=== PATIENT | male | born 1935 | race Caucasian/White ===

== ENCOUNTER → 2016-09-23 12:10 | Outpatient (CLI) | payer MEDICARE, OTHER ==
[2014-07-06 13:42] VITALS: BMI 26.0
[~2016-09-23 12:10] MED LIST: ACETAMINOPHEN325 MG PO; HEMOCYTE PLUS C1 CAP PO; LOPRESSOR25 MG PO; ULTRAM50 MG PO
== END | disposition home or self-care (01) ==
LOC: D.RAD 12:10
DX: R13.10 Dysphagia, unspecified (principal)

== ENCOUNTER 2017-03-23 16:59 | Inpatient (IN) | payer MEDICARE, OTHER ==
[~2017-03-23] VITALS: Ht 180.3 cm; Wt 81.6 kg
--- NOTE | ~2017-03-23 | HP ---
PATIENT: BEV BARNES MEDICAL RECORD: [id number] ACCOUNT: [id number] LOCATION:D.MS [id number] : 36 ADMISSION DATE: 03/23/17 HISTORY AND PHYSICAL EXAMINATION DATE OF ADMISSION: 03/23/2017 CHIEF COMPLAINT: Shortness of breath, cough, back, and chest pain. HISTORY OF PRESENT ILLNESS: This is an 81-year-old healthy male who has been having a cough and congestion for over a week. He states he came to the office with similar symptoms and was checked for flu and that was negative. His symptoms have been ongoing for 4-5 days at that time and was certainly not in the window of opportunity to treat for flu. Over the last week, his cough has gotten worse. His shortness of breath has gotten worse. He has had some sharp chest pains in his back, sometimes with cough and sometimes with certain movements. He was brought to the Emergency Department today with acute worsening of shortness of breath. His blood gas showed a pH of 7.46, pCO2 of 32.6 and pO2 of 63. His white count was elevated at 15,000. Lactic acid is elevated at 2.5, troponin was normal. Chest x-ray showed no acute process, but did show emphysema. He does not have a diagnosis of that. He stopped smoking over 40 years ago. With this hypoxia, elevated white count, and elevated lactic acid level, suspicious for some pneumonia, he is admitted for further care. PAST MEDICAL AND SURGICAL HISTORY: He has had diverticulosis, diverticulitis, BPH, osteoarthritis, degenerative disc disease in his back, phlebitis, and coronary artery disease. PAST SURGICAL HISTORY: Coronary artery bypass surgery in June 2014. He has had surgery for deviated septum and wisdom teeth removed. ALLERGIES: No known drug allergies. CURRENT MEDICATIONS: Really none. He does not take gabapentin regularly nor does he take tramadol regularly. HABITS: Former smoker, quit 40 years ago. No alcohol or drugs. SOCIAL HISTORY: and retired. FAMILY HISTORY: Father at 91. He had diabetes and heart disease. Mother at 86 of throat cancer. REVIEW OF SYSTEMS: GENERAL: No major weight changes. HEENT: No particular sinus or allergy problems. RESPIRATORY: No diagnosis of emphysema or asthma, no history of pneumonia. CARDIAC: He has coronary artery disease and had bypass surgery over 2-1/2 years ago and has done well from that. GASTROINTESTINAL: No diarrhea or constipation and no heartburn. GENITOURINARY: He has BPH. MUSCULOSKELETAL: He has had some low back discomfort and degenerative disc disease. NEUROLOGIC: No migraines. No seizures. PSYCHIATRIC: Denies depression or melancholia. HISTORY AND PHYSICAL [id number] MOLLYBEVVIN PHYSICAL EXAMINATION: VITAL SIGNS: Today, he is afebrile. His heart rate was 86, blood pressure 126/84. When I last saw him, he was on BiPAP in the Emergency Department. His O2 sat was 95% then, but it would go down into the mid 80s, when he stopped BiPAP. HEENT: Grossly within normal limits. NECK: Supple. No JVD or bruit. HEART: Regular rate and rhythm without murmur. LUNGS: A few distant wheezes right now, no rales. ABDOMEN: Soft. EXTREMITIES: No edema. NEUROLOGIC: Intact. LABORATORY DATA: Blood gas pH 7.46, pCO2 32.6, pO2 of 63, O2 sat 93.4% and that was on 5 liters via nasal cannula. CBC with a white count 15,700, hemoglobin 17.3, hematocrit 49.3, platelets number 298,000, 85% neutrophils. Sodium 134, potassium 4.0, chloride 99, CO2 28.1, BUN 25, creatinine 1.0. Glucose 126. Lactic acid 2.5, calcium 9.2, total bilirubin 0.76. AST and ALT were normal. Alkaline phosphatase a little high at 125. Troponin less than 0.017. Chest x-ray read by the radiologist showed no acute cardiopulmonary disease, stable scarring in the left lung base compared to previous chest x-ray from June 2014 and it is mentioned that there are emphysematous changes. ASSESSMENT: 1. Hypoxia. 2. Cough. 3. Probable bronchitis. PLAN: He will remain on BiPAP. We will consult pulmonology. He has been started on Levaquin in the Emergency Room, we will continue that. Other tests or procedures as warranted. TRANSINT:[id number] Voice Confirmation ID: [id number] DOCUMENT ID: [id number] DEMETRICE ALEJANDRE MD at 0844 CC: [id number] DICTATION DATE: 03/24/1736 ADMISSIONS OFFICER: 03/24/17 0123 ADM IN [place] [id number] [facility] [place] [address]
--- NOTE | ~2017-03-23 | CN ---
PATIENT NAME:BEV BARNES MEDICAL RECORD: [id number] : 37 LOCATION:D.MS [id number] ADMIT DATE: 03/23/17 ACCOUNT: [id number] CONSULTING PHYSICIAN: TAYLOR GALVEZ MD REFERRING PHYSICIAN: CLARISA CROUCH MD DATE OF CONSULTATION: 03/24/2017 CONSULT REQUESTING PHYSICIAN: Clarisa Crouch MD REASON FOR CONSULTATION: Pneumonia, left lower lobe, COPD exacerbation. HISTORY OF PRESENT ILLNESS: Mr. Barnes is an 81-year-old gentleman who was sick for the last week to 10 days. He was checked for the influenzae and that was negative. The patient came into the ER with coughing, wheezing, and shortness of breath. He also having chest pain whenever he is coughing or breathing out. The pain was pleuritic in nature. The patient had a CTA of the chest, which showed pneumonia of left lower lobe, but there was no PE. REVIEW OF SYSTEMS: As in history of present illness. PAST MEDICAL HISTORY: 1. Diverticulosis and diverticulitis. 2. BPH. 3. Osteoarthritis. 4. Degenerative disc disease. 5. Ex-smoker, but there is no documented chronic obstructive pulmonary disease. 6. Gastroesophageal reflux disease. This is pretty well controlled. 7. Coronary artery disease. PAST SURGICAL HISTORY: 1. He has a coronary artery bypass graft in June 2014. 2. Surgery for deviated septum. 3. [place] tooth removed. ALLERGIES: There are no known drug allergies. CURRENT MEDICATIONS: On Microventures was reviewed. PERSONAL AND SOCIAL HISTORY: The patient is an ex-smoker. He is a nondrinker. FAMILY HISTORY: Noncontributory. PHYSICAL EXAMINATION: GENERAL: Now, the patient is lying comfortably, but he is not in acute distress. VITAL SIGNS: The blood pressure is 120/61, pulse is 83, respirations is 18, temperature 97.9, SPO2 is 93% on 5 liters nasal cannula. HEENT: Conjunctivae is pink, sclerae nonicteric. NECK: Supple. No JVD. CHEST: There is a crackle at the left base. There is wheeze on forceful expiration. HEART: Rhythm regular, normal sound, no murmur. ABDOMEN: Soft. Bowel sounds present. No hepatosplenomegaly. RECTAL: Deferred. EXTREMITIES: No cyanosis, no clubbing, no pedal edema. CONSULT REPORT [id number] BEV BARNES CENTRAL NERVOUS SYSTEM: The patient is awake and alert. There is no obvious cranial nerve abnormality. The gait was not tested. LABORATORY DATA: CBC: The WBC is 19.8, hemoglobin 13.9, hematocrit 39.7, and the platelet count 213. Chemistry: Sodium is 139, potassium 4.9, BUN is 20, creatinine 0.9. ABG on admission, the pH was 7.46, pCO2 is 30.6, the pO2 was 63, bicarbonate is 23.4. IMPRESSION: 1. Acute hypoxic respiratory failure secondary to; A. Pneumonia of left lower lobe. B. Acute exacerbation of chronic obstructive pulmonary disease. 2. Acute cough. 3. Gastroesophageal reflux disease. 4. Leukocytosis secondary to pneumonia. 5. Ex-smoker. RECOMMENDATION: 1. Continue Levaquin. I will add Rocephin IV to cover for DNR and community-acquired pneumonia. 2. Start methylprednisolone IV. Start albuterol and ipratropium nebulizer. Start Brovana and budesonide nebulizer. 3. Mucinex DM. 4. We will follow up labs and chest radiograph. Dr. Crouch, thank you for involving me in the care of Mr. Barnes. TRANSINT:[id number] Voice Confirmation ID: [id number] DOCUMENT ID: [id number] TAYLOR GALVEZ MD at 1406 CC: [id number] DICTATION DATE: 03/24/17 1620 ANVIL WORKER: 03/24/17 1709 ADM IN [place] [id number] [place] [address]
[2017-03-23 17:49] LABS: BASOPHILS 0.1 % (0-2); EOSINOPHILS 1.3 % (0-7); HEMATOCRIT 49.3 % (42.0-54.0); HEMOGLOBIN 17.3 g/dL (13.5-17.5); IMMATURE GRANULOCYTES 0.3 % (0-5); LYMPHOCYTES 6.7 % (15-50); MCH 31.9 pg (26.0-34.0); MCHC 35.1 g/dL (31.0-37.0); MCV 90.8 fL (80.0-100.0); MEAN PLATELET VOLUME 9.1 fL (7.4-10.4); MONOCYTES 6.7 % (2-11); NEUTROPHILS 84.9 % (40-80); RBC 5.43 10x6/uL (4.20-6.10); RDW 12.2 % (11.5-14.5); WBC 15.7 10x3/uL (4.8-10.8)
[2017-03-23 17:56] LABS: PLATELET COUNT 298 10x3/uL (130-400)
[2017-03-23 18:06] LABS: ALBUMIN 4.3 g/dL (3.4-5.0); ALKALINE PHOSPHATASE 125 U/L (46-116); ALT (SGPT) 54 U/L (10-68); BILIRUBIN - TOTAL 0.76 mg/dL (0.2-1.3); CALC OSMOLALITY 273 mosm/kg (275-300); CALCIUM 9.2 mg/dL (8.5-10.1); CARBON DIOXIDE 28.1 mmol/L (21.0-32.0); CHLORIDE - SERUM 99 mmol/L (98-107); GLUCOSE 126 mg/dL (74-106); PROTEIN - SERUM 7.9 g/dL (6.4-8.2); SODIUM 134 mmol/L (136-145); UREA NITROGEN 25 mg/dL (7-18); eGFR NON AFRICAN AMERICAN 76 mL/min (90-120)
[2017-03-23 18:07] LABS: TROPONIN-I < 0.017 ng/mL (0.000-0.060)
[2017-03-24 01:16] VITALS: BP 114/63; BMI 25.1
[2017-03-24 04:00] VITALS: BP 114/63
[2017-03-24 06:09] LABS: CALCIUM 8.2 mg/dL (8.5-10.1); CARBON DIOXIDE 26.5 mmol/L (21.0-32.0); CHLORIDE - SERUM 104 mmol/L (98-107); CREATININE - SERUM 0.9 mg/dL (0.6-1.3); SODIUM 139 mmol/L (136-145); UREA NITROGEN 20 mg/dL (7-18); eGFR NON AFRICAN AMERICAN 86 mL/min (90-120)
[2017-03-24 06:17] LABS: CALC OSMOLALITY 285 mosm/kg (275-300); GLUCOSE 180 mg/dL (74-106); POTASSIUM - SERUM 4.9 mmol/L (3.5-5.1)
[2017-03-24 06:27] LABS: BASOPHILS 0.1 % (0-2); EOSINOPHILS 0 % (0-7); HEMATOCRIT 39.7 % (42.0-54.0); HEMOGLOBIN 13.9 g/dL (13.5-17.5); IMMATURE GRANULOCYTES 0.3 % (0-5); MCH 31.6 pg (26.0-34.0); MCV 90.2 fL (80.0-100.0); MONOCYTES 6.4 % (2-11); NEUTROPHILS 91.2 % (40-80); RDW 12.3 % (11.5-14.5)
[2017-03-24 06:28] LABS: PLATELET COUNT 213 10x3/uL (130-400); WBC 19.8 10x3/uL (4.8-10.8)
[2017-03-24 09:16] VITALS: BP 113/65
[2017-03-24 11:47] VITALS: BP 120/61
[2017-03-24 13:09] VITALS: Ht 180.3 cm; Wt 81.6 kg
[2017-03-24 16:15] VITALS: BP 117/58
[2017-03-25 04:00] VITALS: BP 107/64
[2017-03-25 06:25] LABS: BASOPHILS 0 % (0-2); EOSINOPHILS 0 % (0-7); HEMATOCRIT 38.5 % (42.0-54.0); HEMOGLOBIN 13.5 g/dL (13.5-17.5); IMMATURE GRANULOCYTES 0.3 % (0-5); LYMPHOCYTES 2.3 % (15-50); MCH 31.4 pg (26.0-34.0); MCHC 35.1 g/dL (31.0-37.0); MCV 89.5 fL (80.0-100.0); MEAN PLATELET VOLUME 9.2 fL (7.4-10.4); MONOCYTES 2.3 % (2-11); NEUTROPHILS 95.1 % (40-80); PLATELET COUNT 233 10x3/uL (130-400); RDW 12.5 % (11.5-14.5); WBC 17.3 10x3/uL (4.8-10.8)
[2017-03-25 06:58] LABS: CALC OSMOLALITY 285 mosm/kg (275-300); CALCIUM 8.9 mg/dL (8.5-10.1); CARBON DIOXIDE 26.5 mmol/L (21.0-32.0); CHLORIDE - SERUM 104 mmol/L (98-107); GLUCOSE 219 mg/dL (74-106); SODIUM 138 mmol/L (136-145); UREA NITROGEN 20 mg/dL (7-18); eGFR NON AFRICAN AMERICAN 76 mL/min (90-120)
[2017-03-25 07:58] VITALS: BP 109/58
[2017-03-25 12:02] VITALS: BP 134/64
[2017-03-25 16:14] VITALS: BP 110/64
[2017-03-26] VITALS: BP 142/58
[2017-03-26 04:00] VITALS: BP 124/65
[2017-03-26 07:07] LABS: BASOPHILS 0 % (0-2); EOSINOPHILS 0 % (0-7); HEMATOCRIT 35.8 % (42.0-54.0); HEMOGLOBIN 12.4 g/dL (13.5-17.5); IMMATURE GRANULOCYTES 0.4 % (0-5); LYMPHOCYTES 2.4 % (15-50); MCH 31.2 pg (26.0-34.0); MCHC 34.6 g/dL (31.0-37.0); MCV 89.9 fL (80.0-100.0); MONOCYTES 5.6 % (2-11); NEUTROPHILS 91.6 % (40-80); PLATELET COUNT 224 10x3/uL (130-400); RBC 3.98 10x6/uL (4.20-6.10); RDW 12.5 % (11.5-14.5); WBC 16.4 10x3/uL (4.8-10.8)
[2017-03-26 07:29] LABS: CALC OSMOLALITY 284 mosm/kg (275-300); CALCIUM 8.9 mg/dL (8.5-10.1); CARBON DIOXIDE 26.7 mmol/L (21.0-32.0); CHLORIDE - SERUM 104 mmol/L (98-107); CREATININE - SERUM 0.9 mg/dL (0.6-1.3); GLUCOSE 210 mg/dL (74-106); POTASSIUM - SERUM 4.4 mmol/L (3.5-5.1); SODIUM 138 mmol/L (136-145); UREA NITROGEN 21 mg/dL (7-18); eGFR NON AFRICAN AMERICAN 86 mL/min (90-120)
[2017-03-26 08:21] VITALS: BP 110/65
[2017-03-26 11:50] VITALS: BP 124/50
[2017-03-26 16:09] VITALS: BP 119/57
[2017-03-26 21:23] VITALS: BP 138/66
[2017-03-27 01:06] VITALS: BP 128/71
[2017-03-27 04:46] VITALS: BP 126/60
[2017-03-27 08:45] VITALS: BP 126/57
[2017-03-27 12:45] VITALS: BP 132/62
[2017-03-27 17:29] VITALS: BP 138/78
[2017-03-28] VITALS: BP 129/70
[2017-03-28 04:00] VITALS: BP 144/71
[2017-03-28 07:33] LABS: BASOPHILS 0 % (0-2); EOSINOPHILS 0 % (0-7); HEMATOCRIT 39.7 % (42.0-54.0); HEMOGLOBIN 13.8 g/dL (13.5-17.5); IMMATURE GRANULOCYTES 0.4 % (0-5); LYMPHOCYTES 3.4 % (15-50); MCH 31.7 pg (26.0-34.0); MCHC 34.8 g/dL (31.0-37.0); MCV 91.1 fL (80.0-100.0); MEAN PLATELET VOLUME 9.1 fL (7.4-10.4); MONOCYTES 8.6 % (2-11); NEUTROPHILS 87.6 % (40-80); PLATELET COUNT 241 10x3/uL (130-400); RBC 4.36 10x6/uL (4.20-6.10); RDW 12.5 % (11.5-14.5)
[2017-03-28 07:47] LABS: CALC OSMOLALITY 286 mosm/kg (275-300); CALCIUM 8.8 mg/dL (8.5-10.1); CARBON DIOXIDE 27.3 mmol/L (21.0-32.0); CHLORIDE - SERUM 103 mmol/L (98-107); CREATININE - SERUM 0.9 mg/dL (0.6-1.3); GLUCOSE 190 mg/dL (74-106); POTASSIUM - SERUM 4.2 mmol/L (3.5-5.1); SODIUM 140 mmol/L (136-145); UREA NITROGEN 21 mg/dL (7-18); eGFR NON AFRICAN AMERICAN 86 mL/min (90-120)
[2017-03-28 10:47] VITALS: BP 134/72
[2017-03-28] MEDS ORDERED: OMNICEF300 MG PO (13:23)
[2017-03-28] MEDS ORDERED: IPRAT-ALBUT 0.5-3 ML UPD (13:24)
[2017-03-28] MEDS ORDERED: LEVAQUIN750 MG PO (13:24)
[2017-03-28] MEDS ORDERED: BROVANA15 MCG/2 M INH (13:24)
[2017-03-28] MEDS ORDERED: BENZONATATE200 MG PO (13:24)
[2017-03-28] MEDS ORDERED: PULMICORT0.5 MG/21 UPD (13:25)
[2017-03-28] MEDS ORDERED: MUCINEX DM ER1 EAC1 PO (13:25)
[2017-03-28] MEDS ORDERED: PROTONIX40 MG PO (13:26)
[2017-03-28] MEDS ORDERED: FLORAJEN3 CAPS460 MG PO (13:26)
[2017-03-28] MEDS ORDERED: PREDNISONE20 MG PO (13:27)
== END 2017-03-28 16:43 | disposition home or self-care (01) | DRG 177 ==
LOC: D.ER 16:59 → D.MS 21:42
PROVIDERS: Emergency Medicine; Family Medicine; Internal Medicine Pulmonary Disease
DX: J15.6 Pneumonia due to other Gram-negative bacteria (principal); J96.01 Acute respiratory failure with hypoxia; J44.1 Chronic obstructive pulmonary disease with (acute) exacerbation; J90 Pleural effusion, not elsewhere classified; J13 Pneumonia due to Streptococcus pneumoniae; D64.9 Anemia, unspecified; Z87.891 Personal history of nicotine dependence

== ENCOUNTER 2017-04-07 12:54 | Inpatient (IN) | payer MEDICARE, OTHER ==
[~2017-04-07] VITALS: Ht 180.3 cm; Wt 85.0 kg
--- NOTE | ~2017-04-07 | HEMODYNAMI ---
PATIENT:BEV BARNES MEDICAL RECORD: [id number] : 37 LOCATION:[facility] D.2107 ADMISSION DATE: 04/07/17 Generatedon:04/08/201711:14 Patient name: BEV BARNES Patient #: [id number] SSN: : 1935 Date of study: 04/08/2017 Page: Of Hemodynamic Procedure Report Patient Data Patient Demographics Procedure consent was obtained First Name: BEV Gender: Male Last Name: MOLLY : 1935 Middle Initial: VIVIAN Age: 81 year(s) Patient #: [id number] Race: Additional ID: [id number] Contact details Address: [address] [place] [address] State: [place] City: [facility] Zip code: [address] Past Medical History Allergies Allergen Reaction Date Comments Reported Other allergy 06/04/2014 HYDROCODONE Other allergy 04/08/2017 oxycodone, hydrocodone Admission Admission Data Admission Date: 04/07/2017 Admission Time: 12:54 Room #: D.2107 Weight (lbs.): 172.95 Weight (kg.): 78.45 Procedure Procedure Types Cath Procedure Diagnostic Procedure LHC LHC w/Coronaries w/Grafts PCI Procedure Coronary Stent Coronary Stent Initial Miscellaneous Procedures Moderate Sedation up to 30 minutes Procedure Description Procedure Date Procedure Date: 04/08/2017 Procedure Start Time: 10:55 Procedure End Time: 11:13 Procedure Staff Name Function Seven Doran MD Performing Physician Vanesa Javed RT Monitor Ava Dumont RT Scrub Hardeep Montanez RN Nurse Amilcar Arthur RN Insurance Sales Producer Indication Angina Procedure Data Cath Procedure Fluoroscopy Diagnostic fluoroscopy Total fluoroscopy Time: 3.8 time: 3.8 min min Diagnostic fluoroscopy Total fluoroscopy dose: 585 dose: 585 mGy mGy Contrast Material Contrast Material Type Amount (ml) Isovue 300 123 Entry Location Entry Primary Successful Side Size Upsize Upsize Entry Closure Succes sful Closure Location (Fr) 1 (Fr) 2 (Fr) Remarks Device Remarks Femoral Right 5 Fr 6 Fr Exoseal artery Short Estimated blood loss: 10 ml Diagnostic catheters Device Type Used For End Catheter Placement MULTIPACK Pigtail 5 Fr LV Angiography catheter MULTIPACK JL 4.0 5Fr Left Coronary catheter Angiography MULTIPACK 3DRC 5Fr Internal mammary catheter arteriography MULTIPACK 3DRC 5Fr Right Coronary catheter Angiography DIAGNOSTIC AR 1 MOD 5Fr Procedure catheter ([id number]) Procedure Complications No complications Procedure Medications Medication Administration Route Dosage 0.9% NaCl I.V. 100 ml/hr Oxygen NC 2 l/min Heparin Flush Bag added to field 2 bags (1000units/500ml NS) Lidocaine 2% added to field 20 Versed I.V. 0.5 mg Fentanyl I.V. 25 mcg Heparin Bolus I.V. 4000 units Integrilin (Bolus I.V. 6.8 ml 2mg/ml) Integrilin (Bolus wasted 3.2 ml 2mg/ml) Hemodynamics Rest Heart Rate: 89 (bpm) Snapshots Pre Cath Intra NCS Post Cath Vital Signs Time Heart Resp SPO2 etCO2 NIBP Rhythm Pain Sedation Rate (ipm) (%) (mmHg) (mmHg) Status Level (bpm) 10:47:10 84 39 94 14.8 119/67(97) NSR 0 (11) 10(A) , No pain 10:51:20 82 32 93 17.8 113/62(83) NSR 0 (11) 10(A) , No pain 10:55:27 85 13 92 20.8 105/63(77) NSR 0 (11) 10(A) , No pain 10:59:29 99 16 94 24.5 109/74(95) NSR 0 (11) 10(A) , No pain 11:04:30 102 20 92 13.3 101/62(82) NSR 0 (11) 9(A) , No pain 11:08:36 94 17 92 18.5 99/60(81) NSR 0 (11) 9(A) , No pain 11:12:38 93 18 93 23 114/64(83) NSR 0 (11) 9(A) , No pain Medications Time Medication Route Dose Verified Delivered Reason Notes Effectiveness by by 10:50:40 0.9% NaCl I.V. 100 Hardeep Hardeep Per physician ml/hr Lisseth Montanez RN RN 10:50:54 Oxygen NC 2 Hardeep Hardeep Per physician l/min Lisseth Montanez RN RN 10:51:08 Heparin Flush added 2 Hardeep Hardeep used for Bag to bags Lisseth Montanez procedure (1000units/500ml RN RN NS) 10:51:22 Lidocaine 2% added 20ml Hardeep Hardeep for local to vial Lisseth Montanez anesthetic RN RN 10:51:31 Versed I.V. 0.5 Hardeep Hardeep for sedation mg Lisseth Montanez RN RN 10:51:40 Fentanyl I.V. 25 Hardeep Hardeep for sedation mcg Lisseth Montanez RN RN 11:04:25 Heparin Bolus I.V. 4000 Hardeep Hardeep for units Lisseth Montanez anticoagulation RN RN 11:04:53 Integrilin I.V. 6.8 Hardeep Hardeep for (Bolus 2mg/ml) ml Lisseth Montanez antiplatelet RN RN therapy 11:09:50 Integrilin wasted 3.2ml Hardeep Hardeep to sharp's (Bolus 2mg/ml) Lisseth Montanez RN application security consultant Log Time Note 10:28:20 Informed consent obtained and on chart 10:28:23 Diagnostic Cath Status : Elective 10:29:14 Indication : Angina 10:30:22 Amilcar Arthur RN sent for patient. Start room use. 10:30:23 Time tracking: Regular hours 10:30:27 Plan of Care:Hemodynamics will remain stable., Cardiac rhythm will remain stable., Comfort level will be maintained., Respiratory function will remain adequate., Patient/ family verbilizes understanding of procedure., Procedure tolerated without complication., Recovers from procedure without complications.. 10:39:33 Patient received from PCU to CCL 2 Alert and oriented. Tansferred to table in Supine position. 10:39:33 Warm blankets applied, and radha hugger turned on for patient comfort. 10:39:34 Correct patient and procedure confirmed by team. 10:39:35 ECG and BP/O2 sat monitors applied to patient. 10:39:36 Full Disclosure recording started 10:46:07 Vital chart was started 10:46:08 Baseline sample Acquired. 10:46:10 Rhythm: sinus rhythm 10:46:29 H&P Date Dictated: 04/07/2017 Within 30 days and on chart., H&P Addendum completed by physician on day of procedure. (MUST COMPLETE FOR ALL OUTPATIENTS). 10:46:30 Pre-procedure instructions explained to patient. 10:46:31 Pre-op teaching completed and patient verbalized understanding. 10:46:32 Family in waiting room. 10:46:33 Patient NPO since Midnight. 10:46:55 Patient allergic to Other allergyoxycodone, hydrocodone 10:46:58 Is the patient allergic to Iodine/contrast media? No. 10:47:01 Is patient on blood thinner?No 10:47:04 Patient diabetic? No. 10:47:10 Previous problem with sedation/anesthesia? No ? 10:47:11 Snore? Yes 10:47:12 Sleep apnea? No 10:47:17 Deviated septum? No 10:47:18 Opens mouth fully? Yes 10:47:19 Sticks out tongue? Yes 10:47:22 Airway obstruction? Yes COPD 10:47:24 Dentures? No ? 10:47:27 Pre procedure: right dorsailis pedis pulse 2+ Normal; easily identifiable; not easily obliterated 10:47:29 Patient pain scale 0/10 ?. 10:47:41 IV patent on arrival in left forearm with 0.9% NaCl at O. 10:47:44 Lab results completed and on chart. 10:47:47 Right groin area was prepped with chlora-prep and draped in sterile fashion 10:47:48 Alarms reviewed by R. N. 10:47:48 Sharps counted by scrub and verified by R.N. 10:49:59 Use device set Femoral Dx 10:50:01 ACIST Syringe (38376) opened to sterile field. 10:50:01 Bag Decanter (2002) opened to sterile field. 10:50:02 Medline Cath Pack ([id number]) opened to sterile field. 10:50:03 SHEATH 5FR Second Mesa (FQM217) opened to sterile field. 10:50:03 DIAGNOSTIC WIRE .035 260cm J wire (977878) opened to sterile field. 10:50:05 ACIST Hand Control (26936) opened to sterile field. 10:50:05 ACIST Manifold (64195) opened to sterile field. 10:50:06 DIAGNOSTIC Multipack 5Fr catheter set ([id number]) opened to sterile field. 10:50:07 Tegaderm 4 x 4 (1626W) opened to sterile field. 10:50:08 PERCUTANEOUS ENTRY 19GA needle opened to sterile field. 10:50:40 0.9% NaCl 100 ml/hr I.V. was administered by Hardeep Montanez RN; Per physician; 10:50:45 Final Timeout: patient, procedure, and site verified with staff and physician. All members of the team are in agreement. 10:50:47 Right groin site verified by team. 10:50:50 Physical assessment completed. ASA score P 2 - A patient with mild systemic disease as per Seven Doran MD. 10:50:53 Sedation plan: IV Moderate Sedation Medication:Versed, Fentanyl 10:50:54 Oxygen 2 l/min NC was administered by Hardeep Montanez RN; Per physician; 10:51:08 Heparin Flush Bag (1000units/500ml NS) 2 bags added to field was administered by Hardeep Montanez RN; used for procedure; 10:51:22 Lidocaine 2% 20ml vial added to field was administered by Hardeep Montanez RN; for local anesthetic; 10:51:31 Versed 0.5 mg I.V. was administered by Hardeep Montanez RN; for sedation; 10:51:40 Fentanyl 25 mcg I.V. was administered by Hardeep Montanez RN; for sedation; 10:53:50 Zero performed for pressure channel P1 10:54:54 Zero performed for pressure channel P1 10:55:00 Procedure started. 10:55:02 Local anesthetic to right femoral artery with Lidocaine 2% by Seven Doran MD.INITIAL ACCESS ONLY 10:55:45 A 5 Fr sheath was inserted into the Right Femoral artery 10:56:02 A MULTIPACK Pigtail 5 Fr catheter was advanced over the wire and used for LV Angiography. 10:56:21 LV gram done using ARTEAGA 10:56:29 EF : 35 % 10:56:33 Injector settings: Ml/sec: 10, Volume: 20, 10:56:35 Catheter removed. 10:56:41 A MULTIPACK JL 4.0 5Fr catheter was advanced over the wire and used for Left Coronary Angiography. 10:58:07 Catheter removed. 10:58:13 A MULTIPACK 3DRC 5Fr catheter was advanced over the wire and used for Internal mammary arteriography. to LAD 10:59:55 A MULTIPACK 3DRC 5Fr catheter was advanced over the wire and used for Right Coronary Angiography. 11:00:07 Use device set TAUTH PCI 11:00:13 INFLATOR Merit BasixCompak (WA4358) opened to sterile field. 11:00:14 SHEATH 6FR Second Mesa (MQQ266) opened to sterile field. 11:02:16 A DIAGNOSTIC AR 1 MOD 5Fr catheter ([id number]) was advanced over the wire and used for Procedure. 11:03:12 GUIDE 6FR HS I SH catheter ([id number]) opened to sterile field. 11:03:25 CHOICE PT Extra Support 182cm wire ([id number]) opened to sterile field. 11:03:36 Sheath upsized to a 6 Fr Short. 11:03:47 6 Fr HS I SH guide catheter was inserted over the wire 11:04:25 Heparin Bolus 4000 units I.V. was administered by Hardeep Montanez RN; for anticoagulation; 11:04:53 Integrilin (Bolus 2mg/ml) 6.8 ml I.V. was administered by Hardeep Montanez RN; for antiplatelet therapy; 11:05:02 Patient Weight : 172.95 lbs 11:05:21 Choice PT ES wire advanced. 11:06:12 Inflation Number: 1 A INTEGRITY RX 3.0 x 30 stent ([id number]) was prepped and advanced across the Mid RCA. The stent was deployed at 15 MARLO for 0:07 (min:sec). 11:06:25 Stent catheter was removed intact over wire. 11:06:25 Wire removed. 11:06:26 Guide catheter removed. 11:06:38 Sheath removed intact; hemostasis achieved with Exoseal to the Right Femoral artery. 11:06:40 Procedure ended.(Physican Out) 11:06:48 EXOSEAL 6Fr (EX600) opened to sterile field. 11:09:12 Fluoroscopy time 03.80 minutes. 11:09:24 Flurop Dose total: 585 11::24 Fluoroscopy dose: 585 mGy 11:09:29 Contrast amount:Isovue 300 123ml. 11:09:30 Sharps counted by scrub and verified by R.N. 11:09:34 Insertion/operative site no bleeding no hematoma. 11:09:37 Post-op/insertion site Right Femoral artery dressed using a 4 x 4 and Tegaderm. 11:09:41 Post right femoral artery:stable, clean and dry 11:09:43 Post Procedure Pulses reassessed and unchanged 11:09:50 Integrilin (Bolus 2mg/ml) 3.2ml wasted was administered by Hardeep Montanez RN; to milka's; 11:10:17 Post-procedure physical assessment completed. ASA score P 2 - A patient with mild systemic disease as per Seven Doran MD. 11:10:19 Post procedure rhythm: unchanged. 11:10:21 Estimated blood loss: 10 ml 11:10:23 Post procedure instruction explained to patient.Patient verbalizes understanding. 11:10:23 Patient needs reinforcement of post procedure teaching. 11:10:43 Procedure type changed to Cath procedure, Diagnostic procedure, LHC, LHC w/Coronaries w/Grafts, PCI procedure, Coronary Stent, Coronary Stent Initial, Miscellaneous Procedures, Moderate Sedation up to 30 minutes 11:10:47 See physician's report for complete and final results. 11:10:54 Procedure Complication : No complications 11:13:39 Procedure and supply charges have been captured, reviewed, submitted and are correct. 11:13:39 Vital chart was stopped 11:13:42 Report given to PCU. 11:13:45 Patient transfered to PCU with Bed. 11:13:47 Procedure ended. 11:13:47 Full Disclosure recording stopped 11:14:02 End room use (Document Last) Intervention Summary Intervention Notes Time ActionType Lesion and Equipment Action# Pressure Duration Attributes Used 11:06:12 Place stent Mid RCA INTEGRITY RX 1 15 00:07 3.0 x 30 stent ([id number]) Device Usage Item Name Manufacture Quantity Catalog Number Hospital Part Current Mini [facility] Lot# / Charge Number Stock Stock Serial# Code ACIST Acist 1 31600 013873 438359 [id number] 20 Syringe Medical (11598) Systems Inc Bag Decanter Microtek 1 2001S 956075 66733 806569 5 () Medical Inc. Medline Cath Cardinal 1 [id number] 324137 12910 225506 5 Pack WhoseView.ie ([id number]) SHEATH 5FR Terumo 1 KEJ229 685158 066141 196845 40 Second Mesa (JPK968) DIAGNOSTIC St Grzegorz 1 562970 182524 114891 444237 30 WIRE .035 260cm J wire (462372) ACIST Hand Acist 1 66897 560538 564273 136483 5 Control Medical (22260) Systems Inc ACIST Acist 1 76480 497655 073598 654608 5 Manifold Medical (94690) Systems Inc DIAGNOSTIC Cardinal 1 [id number] 382021 36874 659097 30 Multipack Health 5Fr catheter set (WA9537) Tegaderm 4 x 3M 1 1626W 854058 521681 131607 5 4 (1626W) PERCUTANEOUS Cook [facility] 1 E03480 026395 849460 5 ENTRY 19GA needle MULTIPACK Cardinal 1 868685 5 Pigtail 5 Fr Health catheter MULTIPACK JL Cardinal 1 265683 5 4.0 5Fr Health catheter MULTIPACK Cardinal 1 372554 5 3DRC 5Fr Health catheter INFLATOR Merit 1 LQ3017 185483 665982 104473 15 Noble [employer] Medical BasixCompak (XP0014) SHEATH 6FR Terumo 1 UHU495 211508 961855 055846 40 Second Mesa (HRL173) DIAGNOSTIC Cardinal 1 [id number] 795128 572547 136282 15 AR 1 MOD 5Fr Health catheter (088653L) GUIDE 6FR HS Medtronic 1 [id number] 222297 51668 988473 1 I SH catheter ([id number]) CHOICE PT [place] 1 [id number] 160758 349055 989907 5 Extra Scientific Support 182cm wire ([id number]) INTEGRITY RX Medtronic 1 [id number] 783783 392359 566589 5 [id number] 3.0 x 30 stent ([id number]) EXOSEAL 6Fr Cardinal 1 EX600 843595 765070 964441 10 (EX600) Health Signature Audit [place] Stage Time Signature Unsigned Intra-Procedure 04/08/2017 Vanesa 11:14:17 AM Counts RT(R) Signatures Monitor : Vanesa Signature : Counts RT Date : Time : [facility] [address] [place] [address]
--- NOTE | ~2017-04-07 | EC ---
PATIENT:BEV BARNES DATE OF SERVICE: 04/07/17 SEX: M MEDICAL RECORD: [id number] DATE OF : 36 LOCATION:D.M2 D.210 AGE OF PATIENT: 81 ADMISSION DATE: 04/09/17 REFERRING PHYSICIAN: INTERPRETING PHYSICIAN: DIEGO DOAN MD ECHOCARDIOGRAM REPORT ECHO CHARGES 4 ECHO COMPLETE CLINICAL DIAGNOSIS: ARRHYTHMIA/CP ECHOCARDIOGRAPHIC MEASUREMENTS (adult normal given) AC root (d.<3.7cm) 3.3 cm LV Septum d (<1.2 cm> 0.9 cm Valve Excursion 1.8 cm LV Septum (systole) 1.4 cm Left Atria (s.<4.0cm> 3.7 cm LVPW d(<1.2cm) 0.8 cm RV (d.<2.3cm) 2.7 cm LVPW (sytole) 1.6 cm LV diastole(<5.6CM) 5.4 cm MV E-F(>70mm/sec) cm LV systole 4.0 cm LVOT Diameter 1.8 cm MV exc.(>10mm) cm Est.ejection fraction (50-75%) % Pericardial Effusion N DOPPLER: LVIT cm/sec A cm/sec E 117 cm/sec LA cm/sec RVSP mmHg LVOT 101 cm/sec AOP1/2T m/s Asc. Ao 128 cm/sec RVOT 71.0 cm/sec RA cm/sec PA 116 cm/sec AV Gradient Peak 6.5 mmHg AV Mean 2.9 mmHg AV Area 2.0 cm MV Gradient Peak 7.0 mmHg MV Mean 2.2 mmHg MV Area cm COMMENTS: Outpatient Case Manager: 1 DAFNE COVARRUBIASOE Child Welfare Worker: 2 Dr. Hall TAPE# PACS DATE OF SERVICE: 04/07/2017 FINDINGS: 1. Left ventricular chamber size is within normal limits. Left ventricular systolic function is mildly reduced, overall ejection fraction 40%. 2. Left atrium, right atrium, and right ventricular chamber sizes are within normal limits. 3. Valvular structures have normal structure and motion. 4. Doppler interrogation reveals [id number] mitral regurgitation, mild tricuspid regurgitation, no other valvular insufficiency or stenosis. ECHOCARDIOGRAM REPORT [id number] BEV BARNES 5. No evidence of pericardial effusion or left ventricular thrombus. TRANSINT:[id number] Voice Confirmation ID: [id number] DOCUMENT ID: [id number] 04/12/2017 Edited to correct date of service, dmkristi. DIEGO DOAN MD at 1323 CC: [id number] DICTATION DATE: 04/08/17 0901 PATIENT CARE SECRETARY: 04/08/17 1252 DIS IN 04/12/17 [facility] [address] [place] [id number]
--- NOTE | ~2017-04-07 | OP ---
PATIENT NAME: BEV BARNES MEDICAL RECORD: [id number] :37 LOCATION:D.M2 D.2107 ADMISSION DATE:04/09/17 SURGEON: DIEGO DOAN MD DATE OF OPERATION: 04/08/2017 PROCEDURES: 1. PTCA stent to RCA. 2. Left heart catheterization. 3. Selective coronary angiography. 4. Vein graft angiography. 5. QUILES angiography. INDICATION: Angina and coronary artery disease. PROCEDURE IN DETAIL: After informed consent was obtained and after detailed explanation of risks, benefits as well as alternative therapies, the patient elected to proceed with angiogram and angioplasty. The right femoral area was prepped and draped in normal sterile fashion. The right femoral artery was cannulated via modified Seldinger technique with placement of 6-Fijian sheath. All catheters exchanged through this sheath. FINDINGS: Left ventriculogram was performed in standard 30-degree ARTEAGA view reveals global hypokinesis throughout all segments. Overall ejection fraction 35% to 40%. SELECTIVE CORONARY ANGIOGRAPHY: 1. Left main showed no significant angiographic disease. 2. Left anterior descending has 90% stenosis in the mid vessel. 3. QUILES to the distal LAD is widely patent. The distal LAD is as well widely patent. 4. Left circumflex has moderate irregularities, but no flow-limiting stenosis. 5. Right coronary has 80% to 85% stenosis in the mid vessel. 6. Vein graft to the right coronary artery is closed. PTCA STENT OF THE RIGHT CORONARY ARTERY: The stent used was a 3.0 x 30 mm Integrity. Result was 0% residual stenosis. OVERALL IMPRESSION: Successful percutaneous transluminal coronary angioplasty stent of the right coronary artery going from 85% initial stenosis to 0% residual. TRANSINT:[id number] Voice Confirmation ID: [id number] DOCUMENT ID: [id number] DIEGO DOAN MD at 1323 CC: [id number] DICTATION DATE: 04/08/17 1112 INFORMATION SYSTEMS ADMINISTRATOR: 04/08/17 1309 DIS IN 04/12/17 [place] [id number]
[~2017-04-07 12:54] MED LIST changes: +BENZONATATE200 MG PO; +BROVANA15 MCG/2 M INH; +FLORAJEN3 CAPS460 MG PO; +IPRAT-ALBUT 0.5-3 ML UPD; +LEVAQUIN750 MG PO; +MUCINEX DM ER1 EAC1 PO; +OMNICEF300 MG PO; +PREDNISONE20 MG PO; +PROTONIX40 MG PO; +PULMICORT0.5 MG/21 UPD
[2017-04-07 15:13] VITALS: BP 125/68; Ht 180.3 cm; Wt 85.0 kg
[2017-04-07 15:59] LABS: BASOPHILS 0.2 % (0-2); EOSINOPHILS 0.1 % (0-7); HEMOGLOBIN 14.2 g/dL (13.5-17.5); IMMATURE GRANULOCYTES 0.2 % (0-5); LYMPHOCYTES 5.1 % (15-50); MCH 31.5 pg (26.0-34.0); MCHC 34.6 g/dL (31.0-37.0); MCV 90.9 fL (80.0-100.0); MEAN PLATELET VOLUME 8.7 fL (7.4-10.4); MONOCYTES 13.8 % (2-11); NEUTROPHILS 80.6 % (40-80); RBC 4.51 10x6/uL (4.20-6.10); RDW 12.6 % (11.5-14.5)
[2017-04-07 16:03] LABS: PLATELET COUNT 144 10x3/uL (130-400)
[2017-04-07 16:21] LABS: ALBUMIN 2.8 g/dL (3.4-5.0); ALKALINE PHOSPHATASE 66 U/L (46-116); ALT (SGPT) 31 U/L (10-68); BILIRUBIN - TOTAL 0.68 mg/dL (0.2-1.3); CALC OSMOLALITY 269 mosm/kg (275-300); CALCIUM 8.1 mg/dL (8.5-10.1); CARBON DIOXIDE 24.6 mmol/L (21.0-32.0); CHLORIDE - SERUM 98 mmol/L (98-107); CREATININE - SERUM 1.4 mg/dL (0.6-1.3); GLUCOSE 190 mg/dL (74-106); POTASSIUM - SERUM 3.9 mmol/L (3.5-5.1); PRO BNP 2336 pg/mL (0-450); SODIUM 130 mmol/L (136-145); UREA NITROGEN 24 mg/dL (7-18); eGFR NON AFRICAN AMERICAN 52 mL/min (90-120)
[2017-04-07 16:22] LABS: TROPONIN-I < 0.017 ng/mL (0.000-0.060)
[2017-04-07 19:00] VITALS: BP 138/62
[2017-04-08 04:00] VITALS: BP 128/54
[2017-04-08 06:56] LABS: HEMATOCRIT 37.1 % (42.0-54.0); HEMOGLOBIN 13.2 g/dL (13.5-17.5); LYMPHOCYTES 7.9 % (15-50); MCH 31.1 pg (26.0-34.0); MCHC 35.6 g/dL (31.0-37.0); MEAN PLATELET VOLUME 8.4 fL (7.4-10.4); NEUTROPHILS 77.2 % (40-80); PLATELET COUNT 122 10x3/uL (130-400); RBC 4.25 10x6/uL (4.20-6.10); RDW 12.2 % (11.5-14.5); WBC 7.9 10x3/uL (4.8-10.8)
[2017-04-08 07:20] LABS: MCV 87.3 fL (80.0-100.0)
[2017-04-08 07:22] LABS: ANION GAP 14.7 mmol/L (8-16); CALCIUM 7.6 mg/dL (8.5-10.1); CARBON DIOXIDE 23.1 mmol/L (21.0-32.0); CREATININE - SERUM 1.1 mg/dL (0.6-1.3); POTASSIUM - SERUM 3.8 mmol/L (3.5-5.1); TROPONIN-I 0.025 ng/mL (0.000-0.060)
[2017-04-08 08:32] VITALS: BP 124/47
[2017-04-08 21:52] VITALS: BP 89/56
[2017-04-09 06:17] VITALS: BP 132/63
[2017-04-09 06:31] LABS: BASOPHILS 0.2 % (0-2); EOSINOPHILS 0.5 % (0-7); HEMATOCRIT 36.2 % (42.0-54.0); HEMOGLOBIN 12.4 g/dL (13.5-17.5); IMMATURE GRANULOCYTES 0.2 % (0-5); MCH 30.8 pg (26.0-34.0); MCHC 34.3 g/dL (31.0-37.0); MEAN PLATELET VOLUME 9.9 fL (7.4-10.4); MONOCYTES 12.7 % (2-11); NEUTROPHILS 75.4 % (40-80); PLATELET COUNT 106 10x3/uL (130-400); RBC 4.03 10x6/uL (4.20-6.10); RDW 12.7 % (11.5-14.5)
[2017-04-09 06:35] LABS: MCV 89.8 fL (80.0-100.0); WBC 5.8 10x3/uL (4.8-10.8)
[2017-04-09 06:48] LABS: ANION GAP 13.3 mmol/L (8-16); CALCIUM 7.7 mg/dL (8.5-10.1); CARBON DIOXIDE 25.5 mmol/L (21.0-32.0); CREATININE - SERUM 1.1 mg/dL (0.6-1.3); POTASSIUM - SERUM 3.8 mmol/L (3.5-5.1)
[2017-04-09 08:49] VITALS: BP 107/55
[2017-04-09 17:00] VITALS: BP 123/66
[2017-04-09 20:30] VITALS: BP 123/62
[2017-04-10] VITALS: BP 128/68
[2017-04-10 06:21] VITALS: BP 111/57
[2017-04-10 06:35] LABS: BASOPHILS 0.3 % (0-2); EOSINOPHILS 0 % (0-7); HEMOGLOBIN 11.8 g/dL (13.5-17.5); LYMPHOCYTES 10.6 % (15-50); MCH 30.7 pg (26.0-34.0); MCHC 34.7 g/dL (31.0-37.0); MCV 88.5 fL (80.0-100.0); MEAN PLATELET VOLUME 9.6 fL (7.4-10.4); MONOCYTES 2.8 % (2-11); NEUTROPHILS 86.3 % (40-80); PLATELET COUNT 101 10x3/uL (130-400); RBC 3.84 10x6/uL (4.20-6.10); RDW 12.8 % (11.5-14.5)
[2017-04-10 06:37] LABS: WBC 3.2 10x3/uL (4.8-10.8)
[2017-04-10 07:09] LABS: CALC OSMOLALITY 289 mosm/kg (275-300); CALCIUM 8.2 mg/dL (8.5-10.1); CARBON DIOXIDE 26.2 mmol/L (21.0-32.0); CHLORIDE - SERUM 103 mmol/L (98-107); PRO BNP 2120 pg/mL (0-450); SODIUM 138 mmol/L (136-145); UREA NITROGEN 20 mg/dL (7-18); eGFR NON AFRICAN AMERICAN 76 mL/min (90-120)
[2017-04-10 07:11] LABS: GLUCOSE 292 mg/dL (74-106)
[2017-04-10 08:06] VITALS: BP 108/60
[2017-04-10 12:24] VITALS: BP 121/68
[2017-04-10 17:28] VITALS: BP 128/72
[2017-04-10 21:16] VITALS: BP 118/61
[2017-04-11 01:23] VITALS: BP 107/54
[2017-04-11 05:58] VITALS: BP 120/65
[2017-04-11 08:10] VITALS: BP 120/62
[2017-04-11 11:45] VITALS: BP 131/63
[2017-04-11 16:17] VITALS: BP 138/69
[2017-04-11 21:39] VITALS: BP 133/56
[2017-04-12 06:02] VITALS: BP 122/60
[2017-04-12] MEDS ORDERED: LOPRESSOR25 MG PO (07:59)
[2017-04-12] MEDS ORDERED: PLAVIX75 MG PO (07:59)
[2017-04-12] MEDS ORDERED: XOPENEX 0.0.63 MG/3 UPD (07:59)
[2017-04-12] MEDS ORDERED: ASPIRIN81 MG PO (08:00)
[2017-04-12] MEDS ORDERED: Bactroban ointment TOPICAL (08:01)
[2017-04-12] MEDS ORDERED: ADVAIR 250/501 DISK INH (08:01)
[2017-04-12] MEDS ORDERED: PREDNISONE10 MG PO (08:09)
[2017-04-12 09:46] VITALS: BP 112/54
== END 2017-04-12 12:31 | disposition home or self-care (01) | DRG 249 ==
LOC: D.SDCHOLD 12:54 → D.M2 12:54 → OBSVTIME 12:55 → D.M2 12:56
PROVIDERS: Family Medicine; Internal Medicine Interventional Cardiology; Internal Medicine Pulmonary Disease
PROC: B2121ZZ Fluoroscopy of Single Coronary Artery Bypass Graft using Low Osmolar Contrast (ICD-10-PCS; 2017-04-08)
PROC: B2111ZZ Fluoroscopy of Multiple Coronary Arteries using Low Osmolar Contrast (ICD-10-PCS; 2017-04-08)
PROC: B2181ZZ Fluoroscopy of Left Internal Mammary Bypass Graft using Low Osmolar Contrast (ICD-10-PCS; 2017-04-08)
PROC: 02703DZ Dilation of Coronary Artery, One Artery with Intraluminal Device, Percutaneous Approach (ICD-10-PCS; principal; 2017-04-08 11:00)
PROC: 4A023N7 Measurement of Cardiac Sampling and Pressure, Left Heart, Percutaneous Approach (ICD-10-PCS; 2017-04-08 11:00)
DX: I25.119 Atherosclerotic heart disease of native coronary artery with unspecified angina pectoris (principal); Z95.1 Presence of aortocoronary bypass graft; Z95.5 Presence of coronary angioplasty implant and graft; R00.8 Other abnormalities of heart beat; N28.9 Disorder of kidney and ureter, unspecified; I48.91 Unspecified atrial fibrillation; J44.9 Chronic obstructive pulmonary disease, unspecified

== ENCOUNTER → 2017-04-27 13:06 | Outpatient (CLI) | payer MEDICARE, OTHER ==
[2017-04-07 15:13] VITALS: BMI 24.8
[~2017-04-27 13:06] MED LIST changes: +ADVAIR 250/501 DISK INH; +ASPIRIN81 MG PO; +Bactroban ointment TOPICAL; +PLAVIX75 MG PO; +PREDNISONE10 MG PO; +XOPENEX 0.0.63 MG/3 UPD
== END | disposition home or self-care (01) ==
LOC: D.RAD 10:15
DX: J18.9 Pneumonia, unspecified organism (principal)

== ENCOUNTER → 2017-06-28 08:34 | Outpatient (CLI) | payer MEDICARE, OTHER ==
[2017-04-07 15:13] VITALS: BMI 24.8
== END | disposition home or self-care (01) ==
LOC: D.RT 08:34
DX: J18.9 Pneumonia, unspecified organism (principal)

== ENCOUNTER → 2018-04-11 07:54 | Outpatient (CLI) | payer MEDICARE, OTHER ==
[2017-04-07 15:13] VITALS: BMI 24.8
== END | disposition home or self-care (01) ==
LOC: D.HCCARDIO 07:54
DX: I25.110 Atherosclerotic heart disease of native coronary artery with unstable angina pectoris (principal); Z95.1 Presence of aortocoronary bypass graft

== ENCOUNTER → 2018-11-18 08:24 | Outpatient (CLI) | payer MEDICARE, OTHER ==
[2017-04-07 15:13] VITALS: BMI 24.8
== END | disposition home or self-care (01) ==
LOC: D.MRI 08:24
PROVIDERS: ATTEND Family Medicine
DX: M54.16 Radiculopathy, lumbar region (principal)

== ENCOUNTER 2019-04-05 05:56 | Emergency (ER) | payer MEDICARE, OTHER ==
[~2019-04-05] VITALS: Ht 180.3 cm; Wt 79.5 kg
[2019-04-05 06:04] VITALS: Ht 180.3 cm; Wt 79.5 kg
[2019-04-05] MEDS ORDERED: ALBUTEROL SULF8.5 GM (06:06)
[2019-04-05 06:26] LABS: CALC OSMOLALITY 280 mosm/kg (275-300); CALCIUM 9.1 mg/dL (8.5-10.1); CARBON DIOXIDE 31.5 mmol/L (21.0-32.0); CHLORIDE - SERUM 100 mmol/L (98-107); POTASSIUM - SERUM 4.4 mmol/L (3.5-5.1); SODIUM 139 mmol/L (136-145); UREA NITROGEN 17 mg/dL (7-18); eGFR NON AFRICAN AMERICAN 76 mL/min (90-120)
[2019-04-05 06:27] LABS: BASOPHILS 0.2 % (0-2); EOSINOPHILS 3.7 % (0-7); HEMATOCRIT 44.7 % (42.0-54.0); HEMOGLOBIN 15.7 g/dL (13.5-17.5); IMMATURE GRANULOCYTES 0.2 % (0-5); LYMPHOCYTES 14.5 % (15-50); MCH 32.7 pg (26.0-34.0); MCHC 35.1 g/dL (31.0-37.0); MCV 93.1 fL (80.0-100.0); MEAN PLATELET VOLUME 8.9 fL (7.4-10.4); MONOCYTES 13.4 % (2-11); RDW 12.7 % (11.5-14.5); WBC 9.3 10x3/uL (4.8-10.8)
[2019-04-05 06:28] LABS: GLUCOSE 119 mg/dL (74-106)
[2019-04-05 06:40] LABS: ALBUMIN 4.2 g/dL (3.4-5.0); ALKALINE PHOSPHATASE 126 U/L (46-116); ALT (SGPT) 27 U/L (10-68); BILIRUBIN - TOTAL 0.36 mg/dL (0.2-1.3); C-REACTIVE PROTEIN 0.9 mg/dL (0.0-0.9); CREATINE KINASE 63 UL (21-232); LIPASE 214 U/L (73-393); PRO BNP 222 pg/mL (0-450); PROTEIN - SERUM 7.8 g/dL (6.4-8.2); TROPONIN-I < 0.017 ng/mL (0.000-0.060)
[2019-04-05 06:52] LABS: PLATELET COUNT 274 10x3/uL (130-400)
[2019-04-05] MEDS ORDERED: CELEBREX 100 M100 MG PO (07:20)
[2019-04-05 09:59] VITALS: BP 144/65
== END 2019-04-05 09:50 | disposition home or self-care (01) ==
LOC: D.ER 05:56
PROVIDERS: Family Medicine
DX: R07.89 Other chest pain (principal); I25.119 Atherosclerotic heart disease of native coronary artery with unspecified angina pectoris